=== PATIENT | male | born 2000 | race Two or more races ===

== ENCOUNTER 2024-12-06 13:48 | Emergency (ER) | payer OTHER, MEDICAID ==
[~2024-12-06] VITALS: Ht 177.8 cm; Wt 68.1 kg
--- NOTE | 2024-12-06 14:12 | ED.PDOC ---
Psychiatric HPI Comments 24 y.o male with PMHx of ETOH abuse, presents to the ED via EMS for an evaluation of anxiety. Patient reports he woke up this morning with carpopedal spasms associated with SOB and numbness to his throat. Patient reports having spams once a week in which they self resolve within an hour but states today spasms were worse with the new onset SOB. At this time, patient presents with no SOB, chest pain, nausea, vomiting, numbness sensation, abdominal pain, fever or chills. Patient admits to drinking one pint of hard liquor like fireball frequently and last drink was last night. He denies history of anxiety or substance use. Chief Complaint: Anxiety Time Seen by MD: 14:00 Reviewed Notes: Director Electronics Notes, Allergies Information Source: Patient, Emergency Med Personnel Mode of Arrival: EMS Severity: Able to Care for Self Severity of Pain: None Severity of Mental Status: None Severity of Symptoms: Moderate Timing: Hours Duration: Since onset Circumstance: Withdrawal Symptoms Current substance abuse: ETOH Stressors: None History of: Alcoholism, ETOH Withdrawl Associated signs and symptoms: ETOH, Tremors Past Medical History PAST MEDICAL HISTORY: Denies Surgical History: Denies all surgeries Family History Family History: Reviewed,noncontributory to illness Social History Smoker: Non-Smoker Alcohol: Heavy Drugs: Denies Drug Use Lives In: Home Constitutional: denies: chills, diaphoresis, fatigue, fever, malaise, sweats, weakness, others EENTM: denies: blurred vision, double vision, ear bleeding, ear discharge, ear drainage, ear pain, ear ringing, eye pain, eye redness, hearing loss, mouth pain, mouth swelling, nasal discharge, nose bleeding, nose congestion, nose pain, photophobia, tearing, throat pain, throat swelling, voice changes, others Respiratory: denies: cough, hemoptysis, orthopnea, SOB at rest, shortness of breath, SOB with excertion, stridor, wheezing, others Cardiovascular: denies: chest pain, dizzy spells, diaphoresis, Dyspnea on exertion, edema, irregular heart beat, left arm pain, lightheadedness, palpitations, PND, syncope, others Gastrointestinal: denies: abdomen distended, abdominal pain, blood streaked bowels, constipated, diarrhea, dysphagia, difficulty swallowing, hematemesis, melena, nausea, poor appetite, poor fluid intake, rectal bleeding, rectal pain, vomiting, others Genitourinary: denies: burning, dysuria, flank pain, frequency, hematuria, incontinence, penile discharge, penile sore, pain, testicle pain, testicle swelling, urgency, others Neurological: denies: dizziness, fainting, headache, left sided numbness, left sided weakness, numbness, paresthesia, pre-existing deficit, right sided numbness, right sided weakness, seizure, speech problems, tingling, tremors, weakness, others Musculoskeletal: reports: others (carpopedal spasm ); denies: back pain, gout, joint pain, joint swelling, muscle pain, muscle stiffness, neck pain Integumetry: denies: bruises, change in color, change in hair/nails, dryness, laceration, lesions, lumps, rash, wounds, others Allergic/Immunocompromised: denies: Difficulty Healing, Frequent Infections, Hives, Itching, others Hematologic/Lymphatic: denies: anemia, blood clots, easy bleeding, easy bruising, swollen glands, others Endocrine: denies: excessive hunger, excessive sweating, excessive thirst, excessive urination, flushing, intolerance to cold, intolerance to heat, unexplained weight gain, unexplained weight loss, others Psychiatric: denies: anxiety, bipolar disorder, depression, hopeless, panic disorder, schizophrenia, sleepless, suicidal, others All Other Systems: Reviewed and Negative Physical Exam General Appearance: No Apparent Distress, Normal HEENT: Normal ENT Inspection, Pharynx Normal, TMs Normal Neck: Full Range of Motion, Non-Tender, Normal, Normal Inspection Respiratory: Chest Non-Tender, Lungs Clear, No Accessory Muscle Use, No Respiratory Distress, Normal Breath Sounds Cardiovascular: No Edema, No JVD, No Murmur, No Gallop, Normal Peripheral Pulses, Regular Rate/Rhythm Breast Exam: Deferred Gastrointestinal: No Organomegaly, Non Tender, No Pulsatile Mass, Normal Bowel Sounds, Soft Genitalia: Deferred Pelvic: Deferred Rectal: Deferred Extremities: No calf tenderness, Normal capillary refill, Normal inspection, Normal range of motion, Non-tender, No pedal edema Musculoskeletal : Extremity Location: Other (carpopedal spasms) Apperance: Normal Neurologic: Alert, clinic physician II-XII nml as Tested, No Motor Deficits, Normal Affect, Normal Mood, No Sensory Deficits Cerebellar Function: Normal Reflexes: Normal Skin: Dry, Normal Color, Warm Lymphatic: No Adenopathy Was a procedure done? Was a procedure done?: No Psych Differential Dx Intoxication Differential Dx: Alcohol Withdraw Syndrome, Dehydration, Electrolyte Imbalance, Thiamine Deficiency X-Ray, Labs, Meds, VS Vital Signs Date Time Temp Pulse Resp B/P (MAP) Pulse Ox O2 Delivery O2 Flow Rate FiO2 12/06/24 15:15 17 Room Air* 0 21 12/06/24 13:51 97.9 100 16 137/86 (103) 98 12/06/24 13:51 16 98 Room Air* 0 21 Lab Test 12/06/24 17:00 12/06/24 14:18 Range/Units Urine Color Yellow Yellow Urine Clarity Clear Clear Urine pH 7.0 5.0-9.0 Urine Specific [place] 1.026 1.001-1.035 Urine Protein 1+ H Negative Urine Ketones 2+ H Negative Urine Blood Negative Negative /uL Urine Nitrite Negative Negative Urine Bilirubin Negative Negative Urine Urobilinogen 8 H Negative mg/dL Urine Leukocyte Esterase Negative Negative /uL Urine RBC 1 0 - 3 /hpf Urine WBC 4 0 - 3 /hpf Urine Squamous Epithelial Cells Few <5 /hpf Urine Bacteria Few H None Seen /hpf Urine Mucus Few None Seen Urine Glucose Normal Normal mg/dL Urine Opiates Screen Neg NEGATIVE Urine Fentanyl Screen Neg NEGATIVE Urine Barbiturates Screen Neg NEGATIVE Urine Phencyclidine Screen Neg NEGATIVE Urine Amphetamines Screen Neg NEGATIVE Urine Benzodiazepines Screen Neg NEGATIVE Urine Cocaine Screen Neg NEGATIVE Urine Cannabinoids Screen Pos NEGATIVE White Blood Count 7.9 4.4-10.8 10^3/uL Red Blood Count 4.83 4.5-5.90 10^6/uL Hemoglobin 15.8 13.5-17.5 g/dL Hematocrit 45.3 41.0-53.0 % Mean Corpuscular Volume 93.9 80.0-100.0 fL Mean Corpuscular Hemoglobin 32.6 H 28.0-32.0 pg Mean Corpuscular Hemoglobin Concent 34.8 32.0-36.0 g/dL Red Cell Distribution Width 13.2 11.8-14.3 % Platelet Count 251 140-450 10^3/uL Mean Platelet Volume 7.0 6.9-10.8 fL Neutrophils (%) (Auto) 82.8 H 37.0-80.0 % Lymphocytes (%) (Auto) 11.2 10.0-50.0 % Monocytes (%) (Auto) 5.6 0.0-12.0 % Eosinophils (%) (Auto) 0.1 0.0-7.0 % Basophils (%) (Auto) 0.3 0.0-2.0 % Neutrophils # (Auto) 6.5 1.6-8.6 10 ^3/uL Lymphocytes # (Auto) 0.9 0.4-5.4 10 ^3/uL Monocytes # (Auto) 0.4 0-1.3 10 ^3/uL Eosinophils # (Auto) 0 0-0.8 10 ^3/uL Basophils # (Auto) 0 0-0.2 10 ^3/uL Nucleated Red Blood Cells 0.1 % Sodium Level 137 136-145 mmol/L Potassium Level 2.6 L 3.5-5.1 mmol/L Chloride Level 99 98-107 mmol/L Carbon Dioxide Level 26 20-31 mmol/L Anion Gap 12 5-15 Blood Urea Nitrogen < 5 L 9-23 mg/dL Creatinine 0.81 0.700-1.30 mg/dL Glomerular Filtration Rate Calc 126 >90 mL/min BUN/Creatinine Ratio 6.2 L 10.0-20.0 Serum Glucose 81 74-106 mg/dL Calcium Level 10.3 8.7-10.4 mg/dL Total Bilirubin 1.6 H 0.2-1.0 mg/dL Aspartate Amino Transferase (AST) 44 H 13-40 U/L Alanine Aminotransferase (ALT) 39 7-40 U/L Alkaline Phosphatase 78 46-116 U/L Total Protein 7.7 5.7-8.2 g/dL Albumin 4.9 H 3.2-4.8 g/dL Plasma/Serum Blood Alcohol 4.1 <10 mg/dL Current Medications Medications (Trade) Dose Ordered Sig/Malena Route Start Time Stop Time Status Last Admin Sodium Chloride 1,000 ml @ 1,000 mls/hr Q1H ONCE IV 12/06/24 14:15 12/06/24 15:22 DC 12/06/24 15:29 X-Ray, Labs, Meds, VS Comment Imaging: X-rays and CT scans were reviewed and interpreted by this provider, imaging shows no fractures and no pathological disease. Pending radiology review. Laboratory: Labs reviewed and interpreted by this provider. No significant abnormalities noted. Patient has prior medical visits reviewed. Med reconciliation performed Vital signs reviewed Time of 1ST Reevaluation: 14:08 Reevaluation 1ST: Improved Patient Education/Counseling: Diagnosis, Treatment, Prognosis, Need For Follow Up (Patient advised to follow-up in the emergency room in the next 24 to 48 hours if symptoms do not improve. Advised follow-up with PCP in the next 3 to 5 days. Patient verbalized understanding. ) Family Education/Counseling: No Family Present Departure 1 Departure Time of Disposition: 18:44 Impression: Primary Impression: Anxiety Additional Impression: Alcohol abuse Disposition: 01 HOME / SELF CARE / HOMELESS Condition: Fair e-Prescriptions Hydroxyzine Hcl (Hydroxyzine Hcl) 25 Mg Tab 1 TAB PO TID PRN, #20 TAB Prov: GISELL PROCTOR 12/06/24 Discharged With: Self Critical Care Note Critical Care Time?: No Stability Stability form required: No I personally scribed for GISELL PROCTOR [facility] on 12/06/24 at 14:12. Electronically submitted by Cha Lovelace ([facility]). GSIELL PROCTOR Dec 06, 2024 14:12
[2024-12-06 14:53] LABS: Basophils # (auto) 0 10 ^3/uL (0-0.2); Basophils % (auto) 0.3 % (0.0-2.0); Eosinophils # (auto) 0 10 ^3/uL (0-0.8); Eosinophils % (auto) 0.1 % (0.0-7.0); Hematocrit 45.3 % (41.0-53.0); Hemoglobin 15.8 g/dL (13.5-17.5); Lymphocytes # (auto) 0.9 10 ^3/uL (0.4-5.4); Lymphocytes % (auto) 11.2 % (10.0-50.0); Mean Corpuscular Hemoglobin 32.6 pg (28.0-32.0); Mean Corpuscular Hgb Conc. 34.8 g/dL (32.0-36.0); Mean Corpuscular Volume 93.9 fL (80.0-100.0); Monocytes # (auto) 0.4 10 ^3/uL (0-1.3); Monocytes % (auto) 5.6 % (0.0-12.0); Neutrophils # (auto) 6.5 10 ^3/uL (1.6-8.6); Neutrophils % (auto) 82.8 % (37.0-80.0); Nucleated Red Blood Cells % 0.1 %; Platelet Count (auto) 251 10^3/uL (140-450); Red Blood Cells 4.83 10^6/uL (4.5-5.90); Red Cell Distribution Width 13.2 % (11.8-14.3); White Blood Cell 7.9 10^3/uL (4.4-10.8)
[2024-12-06 15:15] VITALS: RESP 17
[2024-12-06 15:20] LABS: Alanine Aminotransferase 39 U/L (7-40); Anion Gap 12 (5-15); Blood Alcohol 4.1 mg/dL (<10); Calcium 10.3 mg/dL (8.7-10.4); Carbon Dioxide 26 mmol/L (20-31); Chloride 99 mmol/L (98-107); Glucose 81 mg/dL (74-106); Sodium 137 mmol/L (136-145)
[2024-12-06 15:21] LABS: Total Protein 7.7 g/dL (5.7-8.2)
[2024-12-06 15:23] LABS: Albumin 4.9 g/dL (3.2-4.8); Aspartate Aminotransferase 44 U/L (13-40); BUN/Creatinine Ratio 6.2 (10.0-20.0); Bilirubin, Total 1.6 mg/dL (0.2-1.0); Blood Urea Nitrogen < 5 mg/dL (9-23); Potassium 2.6 mmol/L (3.5-5.1)
[2024-12-06 15:25] LABS: Alkaline Phosphatase 78 U/L (46-116)
[2024-12-06] MEDS: SODIUM CHLORIDE 0.9% 1,000 ML IV ONE (15:29)
[2024-12-06 17:34] LABS: Amphetamine Screen, Urine Neg (NEGATIVE); Barbiturate Scree,Urine Neg (NEGATIVE); Benzodiazephine Screen, Urine Neg (NEGATIVE); Cannabinoid Screen, Urine Pos (NEGATIVE); Cocaine Screen, Urine Neg (NEGATIVE); Opiate Scree,Urine Neg (NEGATIVE); Phencyclidine Screen, Urine Neg (NEGATIVE)
[2024-12-06 17:37] LABS: Urine Bacteria FEW /hpf (None Seen); Urine Blood Negative /uL (Negative); Urine Clarity Clear (Clear); Urine Color Yellow (Yellow); Urine Mucus FEW (None Seen); Urine Protein, UAD 1+ (Negative); Urine Specific Gravity 1.026 (1.001-1.035); Urine Squamous Epithelial Cell FEW /hpf (<5); Urine Urobilinogen 8 mg/dL (Negative); Urine WBC 4 /hpf (0 - 3)
[2024-12-06] MEDS ORDERED: HYDR-3682 PO (18:45)
[2024-12-06 19:46] VITALS: BP 111/81; PULSE 56; RESP 16; TEMP 98.6; O2SAT 100
== END 2024-12-06 19:53 | disposition home or self-care (01) ==
LOC: EDBD 13:48 → ER 13:48
DX: F41.9 Anxiety disorder, unspecified (principal); F10.10 Alcohol abuse, uncomplicated; Z79.899 Other long term (current) drug therapy
CPT/HCPCS: 36415; 80053; 80307; 80320; 81001; 85025; 96360; 99283; J7030

== ENCOUNTER 2025-07-14 15:32 | Emergency (ER) | payer OTHER, MEDICAID ==
[~2025-07-14] VITALS: Ht 175.3 cm; Wt 59.0 kg
[~2025-07-14 15:32] MED LIST: HYDR-3682 PO
--- NOTE | 2025-07-14 15:54 | ED.PDOC ---
History of Present Illness HPI Comments 25-year-old male presents to the ER with alcohol abuse, anxiety and the chief complain of the upper extremity cramps. Patient reports on getting upper extremity cramps less than 1 hour ago due from anxiety. Denies chills, fever, N/V/D, SOB, CP. No other associated symptoms, modifiers, recent injuries or sick contacts present at this time. Chief Complaint: Withdrawal Time Seen by MD: 15:45 Primary Care Provider: NONE Reviewed Notes: Nurses Notes, Medications, Allergies Allergies: Coded Allergies: NO KNOWN ALLERGIES (Unverified , 12/06/24) Home Meds Active Scripts Hydroxyzine Hcl (Hydroxyzine Hcl) 25 Mg Tab, 1 TAB PO TID PRN, #20 TAB Prov:GISELL PROCTOR NILO 12/06/24 Information Source: Patient Mode of Arrival: EMS Severity: Moderate Timing: Minutes Duration: Since onset, Minutes Prehospital treatment: None Past Medical History PAST MEDICAL HISTORY: Denies Past Medical History (Other): Possible abuse, anxiety Surgical History: Denies all surgeries Family History Family History: Reviewed,noncontributory to illness, Unknown Social History Smoker: Non-Smoker Alcohol: Heavy Drugs: Denies Drug Use Lives In: Home Constitutional: reports: others (Upper Extremity cramping); denies: chills, diaphoresis, fatigue, fever, malaise, sweats, weakness EENTM: denies: blurred vision, double vision, ear bleeding, ear discharge, ear drainage, ear pain, ear ringing, eye pain, eye redness, hearing loss, mouth pain, mouth swelling, nasal discharge, nose bleeding, nose congestion, nose pain, photophobia, tearing, throat pain, throat swelling, voice changes, others Respiratory: denies: cough, hemoptysis, orthopnea, SOB at rest, shortness of breath, SOB with excertion, stridor, wheezing, others Cardiovascular: denies: chest pain, dizzy spells, diaphoresis, Dyspnea on exertion, edema, irregular heart beat, left arm pain, lightheadedness, palpitations, PND, syncope, others Gastrointestinal: denies: abdomen distended, abdominal pain, blood streaked bowels, constipated, diarrhea, dysphagia, difficulty swallowing, hematemesis, melena, nausea, poor appetite, poor fluid intake, rectal bleeding, rectal pain, vomiting, others Genitourinary: denies: burning, dysuria, flank pain, frequency, hematuria, incontinence, penile discharge, penile sore, pain, testicle pain, testicle swelling, urgency, others Neurological: denies: dizziness, fainting, headache, left sided numbness, left sided weakness, numbness, paresthesia, pre-existing deficit, right sided numb ness, right sided weakness, seizure, speech problems, tingling, tremors, weakness, others Musculoskeletal: denies: back pain, gout, joint pain, joint swelling, muscle pain, muscle stiffness, neck pain, others Integumetry: denies: bruises, change in color, change in hair/nails, dryness, laceration, lesions, lumps, rash, wounds, others Allergic/Immunocompromised: denies: Difficulty Healing, Frequent Infections, Hives, Itching, others Hematologic/Lymphatic: denies: anemia, blood clots, easy bleeding, easy bruising, swollen glands, others Endocrine: denies: excessive hunger, excessive sweating, excessive thirst, excessive urination, flushing, intolerance to cold, intolerance to heat, unexplained weight gain, unexplained weight loss, others Psychiatric: denies: anxiety, bipolar disorder, depression, hopeless, panic disorder, schizophrenia, sleepless, suicidal, others All Other Systems: Reviewed and Negative Physical Exam General Appearance: Moderate Distress, Normal HEENT: Normal ENT Inspection, Pharynx Normal, TMs Normal Neck: Full Range of Motion, Non-Tender, Normal, Normal Inspection Respiratory: Chest Non-Tender, Lungs Clear, No Accessory Muscle Use, No Respiratory Distress, Normal Breath Sounds Cardiovascular: No Edema, No JVD, No Murmur, No Gallop, Normal Peripheral Pulses, Regular Rate/Rhythm Breast Exam: Deferred Gastrointestinal: No Organomegaly, Non Tender, No Pulsatile Mass, Normal Bowel Sounds, Soft Genitalia: Deferred Pelvic: Deferred Rectal: Deferred Extremities: No calf tenderness, Normal capillary refill, Normal inspection, Normal range of motion, Non-tender, No pedal edema Musculoskeletal : Apperance: Normal Neurologic: Alert, sail repairer II-XII nml as Tested, No Motor Deficits, Normal Affect, Normal Mood, No Sensory Deficits Cerebellar Function: Normal, NOT DONE Reflexes: Normal Skin: Dry, Normal Color, Warm Peripheral Pulses: 3+ Radial (R), 3+ Radial (L) Lymphatic: No Adenopathy Was a procedure done? Was a procedure done?: No Differential Dx Considerations may include: Alcohol abuse Electrolyte imbalance X-Ray, Labs, Meds, VS Vital Signs Date Time Temp Pulse Resp B/P (MAP) Pulse Ox O2 Delivery O2 Flow Rate FiO2 07/14/25 18:05 98.2 93 18 150/118 (129) 99 98.2 07/14/25 15:46 98.1 100 20 133/75 99 98.1 Current Medications Medications (Trade) Dose Ordered Sig/Malena Route Start Time Stop Time Status Last Admin Thiamine HCl 100 mg ONCE ONCE IV 07/14/25 16:00 07/14/25 16:01 DC 07/14/25 18:04 Sodium Chloride 1,000 ml @ 1,000 mls/hr Q1H ONCE IV 07/14/25 16:00 07/14/25 16:59 DC 07/14/25 18:04 Lorazepam (Ativan Inj) 1 mg ONCE ONCE IV 07/14/25 16:00 07/14/25 16:01 DC 07/14/25 18:04 Patient alert. Vitals stable. No sign of distress. He is anxious. Establish intravenous access. Was given fluids. Was given thiamine. Was given Ativan. No leg swelling. No shortness a breath. No chest pain. Saturation pristine on room air. Heart rate within normal limits clinically. Respiratory rate within normal limits. Counseled patient on effects of drinking for 15 minutes. Was told to follow up with his primary care physician. Was told to come back if there is any problem. Time of 1ST Reevaluation: 16:15 Reevaluation 1ST: Improved Patient Education/Counseling: Diagnosis, Treatment, Prognosis Family Education/Counseling: No Family Present SEPSIS Sepsis Screen Date sepsis recognized/suspect: Jul 14, 2025 Time Sepsis recognized/suspect: 1534 Recent Procedure: No On Antibiotic Therapy: No Respiratory Rate >20: No Heart Rate >90: Yes Temp<36 C (96.8 F) or >38.3 C: No SBP <90 or MAP <65 mmHG: No New Acute Mental Status Change: No Is the patient on CPAP, BIPAP,: No Physician Orders Complete Blood Count (07/14/25 15:46) Drug Screen (07/14/25 15:46) Urinalysis (07/14/25 15:46) Blood Alcohol (07/14/25 15:46) Electrocardigram (07/14/25 15:46) Basic Metabolic Panel (07/14/25 15:46) Sodium Chloride 0.9% (07/14/25 16:00) Vital Signs Date Time Temp Pulse Resp B/P (MAP) Pulse Ox O2 Delivery O2 Flow Rate FiO2 07/14/25 18:05 98.2 93 18 150/118 (129) 99 98.2 07/14/25 15:46 98.1 100 20 133/75 99 98.1 Medications Medications Dose Ordered Sig/Malena Route Start Time Stop Time Status Last Admin Dose Admin Lorazepam 1 mg ONCE ONCE IV 07/14/25 16:00 07/14/25 16:01 DC 07/14/25 18:04 Sodium Chloride 1,000 ml @ 1,000 mls/hr Q1H ONCE IV 07/14/25 16:00 07/14/25 16:59 DC 07/14/25 18:04 Thiamine HCl 100 mg ONCE ONCE IV 07/14/25 16:00 07/14/25 16:01 DC 07/14/25 18:04 Departure 1 Departure Time of Disposition: 18:09 Impression: Primary Impression: Alcohol abuse Additional Impressions: Anxiety Dehydration Disposition: 01 HOME / SELF CARE / HOMELESS Condition: Good Discharged With: Self Critical Care Note Critical Care Time?: No Stability Stability form required: No Heart Score Heart Score: Heart Score Response (Comments) Value History N/A 0 EKG N/A 0 Age N/A 0 Risk Factors N/A 0 Troponin N/A 0 Total 0 I personally scribed for YAN MONTGOMERY MD ([email or web address]) on 07/14/25 at 15:54. Electronically submitted by Dany Benjamin ([email or web address]). YAN MONTGOMERY MD Jul 14, 2025 15:54
[2025-07-14] MEDS: THIAMINE 100mg/ml INJ (200mg/2ml VIAL) IV ONE (18:04)
[2025-07-14] MEDS: SODIUM CHLORIDE 0.9% 1,000 ML IV ONE ×2 (18:04→19:44)
[2025-07-14] MEDS: LORazepam 2MG/ML-1ML VIAL IV ONE (18:04)
[2025-07-14 18:33] LABS: Hematocrit 45.8 % (41.0-53.0); Hemoglobin 16.0 g/dL (13.5-17.5); Mean Corpuscular Hemoglobin 31.2 pg (28.0-32.0); Mean Corpuscular Volume 89.1 fL (80.0-100.0); Nucleated Red Blood Cells % 0.1 %
[2025-07-14 18:42] LABS: Chloride 101 mmol/L (98-107); Sodium 140 mmol/L (136-145)
[2025-07-14 18:43] LABS: Anion Gap 15 (5-15); Calcium 9.2 mg/dL (8.7-10.4); Carbon Dioxide 24 mmol/L (20-31)
[2025-07-14 18:48] LABS: BUN/Creatinine Ratio 8.6 (10.0-20.0)
[2025-07-14] MEDS: SODIUM CHLORIDE 0.9% 2,000 ML IV ONE (18:50)
[2025-07-14 18:56] LABS: Potassium 3.1 mmol/L (3.5-5.1)
[2025-07-14 18:57] LABS: Blood Urea Nitrogen 7 mg/dL (9-23); Glucose 106 mg/dL (74-106)
[2025-07-14 20:31] LABS: Urine Protein, UAD Negative (Negative)
[2025-07-14 20:43] LABS: Amphetamine Screen, Urine Neg (NEGATIVE); Barbiturate Scree,Urine Neg (NEGATIVE); Benzodiazephine Screen, Urine Neg (NEGATIVE); Cannabinoid Screen, Urine Pos (NEGATIVE); Cocaine Screen, Urine Neg (NEGATIVE); Opiate Scree,Urine Neg (NEGATIVE); Phencyclidine Screen, Urine Neg (NEGATIVE)
[2025-07-14 21:47] VITALS: BP 127/74; PULSE 72; RESP 17; TEMP 97.9; O2SAT 97
== END 2025-07-14 21:52 | disposition home or self-care (01) ==
LOC: EDBD 15:32 → ER 15:32
DX: F10.10 Alcohol abuse, uncomplicated (principal); E86.0 Dehydration; F41.9 Anxiety disorder, unspecified; Y90.9 Presence of alcohol in blood, level not specified
CPT/HCPCS: 36415; 80048; 80307; 80320; 81001; 85025; 96361; 96374; 96375; 99284; J2060; J3411; J7030